=== PATIENT | female | born 1955 | race Caucasian/White ===

== ENCOUNTER → 2018-02-14 | Outpatient (CLI) | payer OTHER ==
[~2018-02-14] MED LIST: DICL75ER PO; ZESTORETIC 20-121 EA PO
[2018-02-15 09:45] LABS: Source Cervix
== END ==
LOC: LAB SHORT 16:30 → LAB 16:30
PROVIDERS: Student in an Organized Health Care Education/Training Program
DX: Z01.419 Encounter for gynecological examination (general) (routine) without abnormal findings (principal)
CPT/HCPCS: G0145

== ENCOUNTER → 2019-12-04 | Outpatient (CLI) | payer OTHER | LOC: EDSTATUS 13:24 → LAB EV 17:37 → LAB SHORT 17:37 | DX: N39.0 Urinary tract infection, site not specified (principal) | CPT/HCPCS: 87086 ==